=== PATIENT | male | born 1990 | race Hispanic/Latino ===

== ENCOUNTER 2017-11-27 16:01 | Emergency (ER) | payer SELFPAY ==
[~2017-11-27] VITALS: Ht 172.7 cm; Wt 68.0 kg
[2017-11-27 16:31] LABS: BASOPHILS # (AUTO) 0.1 (0.0-0.1); BASOPHILS % 0.7 % (0.0-1.0); EOSINOPHILS # (AUTO) 0.2 (0.0-0.4); EOSINOPHILS % 2.1 % (0.0-6.0); HEMATOCRIT 43.1 % (38.2-49.6); HEMOGLOBIN 15.1 g/dL (14.0-18.0); LYMPHOCYTES # (AUTO) 1.7 (1.0-3.2); LYMPHOCYTES % 24.3 % (18.0-39.1); MEAN CORPUSCULAR HEMOGLOBIN 29.7 pg (28-32); MEAN CORPUSCULAR VOLUME 84.7 fL (81-99); MONOCYTES # (AUTO) 0.5 (0.2-0.8); MONOCYTES % 7.3 % (4.4-11.3); NEUTROPHILS # (AUTO) 4.6 (2.1-6.9); NEUTROPHILS % 65.2 % (38.7-80.0); PLATELET COUNT 232 x10e3/uL (140-360); RED BLOOD COUNT 5.09 x10e6/uL (4.3-5.7); RED CELL DISTRIBUTION WIDTH 11.8 % (11.7-14.4)
--- NOTE | 2017-11-27 16:31 | Diagnostic Imaging Report ---
Exam: Left leg 2 views History: Pain Comparison: None. Findings: No acute fracture. Nail anterior medial soft tissues of the calf. Possible cortical fracture mid tibia. Impression: Nail anterior medial soft tissues of the mid calf. Possible small cortical fracture mid tibia. Signed by: Dr. Atilio Stroud M.D. on 11/27/2017 4:28 PM
[2017-11-27 16:41] LABS: INR 0.87; PARTIAL THROMBOPLASTIN TIME 26.2 seconds (23.8-35.5); PROTHROMBIN TIME 12.6 seconds (11.9-14.5)
[2017-11-27] MEDS ORDERED: CEFAZOLIN SOD 1 GM/D5W 50ML 50 ML IV ONE (16:45)
[2017-11-27] MEDS ORDERED: TETANUS/DIPHTHERIA TOX ADULT 0.5 ML SYR IM ONE (16:45)
[2017-11-27 16:47] LABS: ANION GAP 16.6 mmol/L (8-16); BLOOD UREA NITROGEN 17 mg/dL (7-26); BUN/CREATININE RATIO 18 (6-25); CALCIUM 9.6 mg/dL (8.4-10.2); CARBON DIOXIDE 23 mmol/L (22-29); CHLORIDE 107 mmol/L (98-107); CREATININE, SERUM 0.94 mg/dL (0.72-1.25); EST GLOMERULAR FILTRATION RATE > 60 ML/MIN (60-); GLUCOSE 93 mg/dL (74-118); POTASSIUM 3.6 mmol/L (3.5-5.1); SODIUM 143 mmol/L (136-145)
[2017-11-27 17:21] LABS: CLARITY,URINE CLEAR (CLEAR); COLOR,URINE YELLOW (YELLOW); KETONES,URINE NEGATIVE (NEGATIVE); LEUKOCYTE ESTERASE ,URINE NEGATIVE (NEGATIVE); NITRITE,URINE NEGATIVE (NEGATIVE); PROTEIN,URINE DIPSTICK NEGATIVE (NEGATIVE)
[2017-11-27 17:22] LABS: BILIRUBIN,URINE NEGATIVE (NEGATIVE); URINE UROBILINOGEN 0.2 mg/dL (0.2 - 1)
[2017-11-27 17:25] LABS: AMPHETAMINES SCREEN,URINE NEGATIVE (NEGATIVE); BENZODIAZEPINES SCREEN,URINE NEGATIVE (NEGATIVE); PHENCYCLIDINE SCREEN,URINE NEGATIVE (NEGATIVE)
[2017-11-27 17:34] LABS: BACTERIA,URINE RARE /HPF; MUCUS,URINE MODERATE (RARE)
[2017-11-27 19:48] VITALS: BP 133/94
== END 2017-11-27 19:59 | disposition short-term general hospital (02) ==
LOC: ER 16:04
DX: M79.662 Pain in left lower leg (principal); S81.842A Puncture wound with foreign body, left lower leg, initial encounter; W29.4XXA Contact with nail gun, initial encounter; Y99.0 Civilian activity done for income or pay
CPT/HCPCS: 36415; 80048; 80307; 81001; 85025; 85610; 85730; 90471; 90714; 99284